=== PATIENT | male | born 1945 | race Caucasian/White ===

== ENCOUNTER 2021-07-10 06:00 | Day surgery (SDC) | payer OTHER ==
[~2021-07-10] VITALS: Ht 170.2 cm; Wt 127.0 kg
[~2021-07-10 06:00] MED LIST: ACET325 PO; ASPI325 PO; CLON.1 PO; GLIPIZIDE PO; HYDCHL25 PO; INSDET100 SQ; LEVSOD100 PO; LISHYD1012 PO; LISI10 PO; LISI5 PO; METF500 PO; METTREX2.5 PO; OSTERA TABLET1 EACH PO; Pravachol40 MG PO; REPA2 PO; SIMV20 PO; SIMV5 PO; TAMS.4ER PO; VITB100 PO
[2021-07-10] MEDS ORDERED: ATOR40TA PO (06:30)
[2021-07-10] MEDS ORDERED: ASPI81CH PO (06:30)
[2021-07-10] MEDS ORDERED: CLOPIDOGREL75 MG PO (06:31)
[2021-07-10] MEDS ORDERED: Bisoprolol Fumar5 MG PO (06:31)
[2021-07-10] MEDS ORDERED: JARDIANCE25 MG PO (06:31)
[2021-07-10] MEDS ORDERED: FAMO20 PO (06:32)
[2021-07-10] MEDS ORDERED: FOLI1 PO (06:32)
[2021-07-10] MEDS ORDERED: GABA300 PO (06:33)
[2021-07-10] MEDS ORDERED: HYDROCHLOROTH12.5 MG PO (06:33)
[2021-07-10] MEDS ORDERED: LISI20 PO (06:34)
[2021-07-10] MEDS ORDERED: INSULANI (06:34)
[2021-07-10] MEDS ORDERED: LEVSOD137 PO (06:34)
[2021-07-10] MEDS ORDERED: METFORMIN ER1000 M2 PO (06:35)
[2021-07-10] MEDS ORDERED: NITR.4SL SL (06:35)
[2021-07-10] MEDS ORDERED: STELARA90 MG/1 ML SQ (06:36)
[2021-07-10] MEDS ORDERED: TAMS.4ER PO (06:36)
[2021-07-10] MEDS ORDERED: PROB500 PO (06:36)
--- NOTE | 2021-07-10 10:09 | NUR ---
TR BAND ON RIGHT WRIST FULLY DEFLATED. REMAINS ON WITH NO AIR IN, ARM BOARD FOR SUPPORT. SITE APPEARS SOFT NON TENDER WITH NO ACTIVE BLEEDING, OOZING, OR PAIN NOTED. PT AOX4, DOES NOT REPORT ANY NEEDS AT THIS TIME. PREVIOUSLY ATE 100 % OF BREAKFAST MEAL, TOLERATES WITH NO DIFFICULTIES. HOB RAISED TO 90 DEGREES, RIGHT GROIN SITE REMAINS SOFT NON TENDER NO BLEEDING OR OOZING. DRESSING INTACT. CALL LIGHT IN REACH.
--- NOTE | 2021-07-10 11:34 | NUR ---
ECHO AT BEDSIDE
--- NOTE | 2021-07-10 11:53 | NUR ---
R GROIN AND WRIST STABLE, PT GETTING DRESSED PER SELF.
--- NOTE | 2021-07-10 12:02 | NUR ---
BOTH SITES REMAIN STABLE AFTER GETTING DRESSED. TR BAND REMOVED, AREA CLEANSED, AND CLOTH DOT PLACED. ARM BOARD REPLACED TO R FOREARM AND SLING PUT ON R ARM. SALINE LOCK REMOVED WITH CATHETER INTACT. DISCHARGE INSTRUCTIONS REVIEWED WITH PT, VERBALIZES UNDERSTANDING OF INSTRUCTIONS.
== END 2021-07-10 12:05 | disposition home or self-care (01) ==
LOC: MHTC 06:00
DX: I25.118 Atherosclerotic heart disease of native coronary artery with other forms of angina pectoris (principal); E11.9 Type 2 diabetes mellitus without complications; I10 Essential (primary) hypertension; E78.5 Hyperlipidemia, unspecified; Z87.891 Personal history of nicotine dependence; Z79.4 Long term (current) use of insulin
CPT/HCPCS: 93458; 99152; 99153; C1769; C1887; C1894; C8929; J1644; J2250; J3010; J7030; J7050; Q9957; Q9967

== ENCOUNTER 2021-10-01 15:27 | Emergency (ER) | payer OTHER ==
[~2021-10-01] VITALS: Ht 170.2 cm; Wt 117.9 kg
[~2021-10-01 15:27] MED LIST changes: +ASPI81CH PO; +ATOR40TA PO; +Bisoprolol Fumar5 MG PO; +CLOPIDOGREL75 MG PO; +FAMO20 PO; +FOLI1 PO; +GABA300 PO; +HYDROCHLOROTH12.5 MG PO; +INSULANI; +JARDIANCE25 MG PO; +LEVSOD137 PO; +LISI20 PO; +METFORMIN ER1000 M2 PO; +NITR.4SL SL; +PROB500 PO; +STELARA90 MG/1 ML SQ
[2021-10-01 16:42] LABS: BASOPHILS ABSOLUTE AUTO 0.04 K/mm3 (0.00-0.23); BASOPHILS PERCENT AUTO 1 % (0-2); EOSINOPHILS PERCENT AUTO 3 % (0-6); Hematocrit 41.9 % (37.0-53.0); IMMATURE GRAN ABSOLUTE AUTO 0.04 K/mm3 (0.00-0.10); IMMATURE GRAN PERCENT AUTO 1 % (0-1); LYMPHOCYTES ABSOLUTE AUTO 1.37 K/mm3 (0.84-5.20); LYMPHOCYTES PERCENT AUTO 19 % (21-46); MONOCYTES ABSOLUTE AUTO 0.45 K/mm3 (0.16-1.47); MONOCYTES PERCENT AUTO 6 % (4-13); Mean Corpuscular Volume 97 fL (80-100); Mean Platelet Volume 10.6 fL (9.1-12.4); NEUTROPHILS ABSOLUTE AUTO 5.04 K/mm3 (1.96-9.15); NEUTROPHILS PERCENT AUTO 71 % (41-73); Platelet Count 263 K/mm3 (150-400); RDW Standard Deviation 50.3 fL (35.1-46.3); Red Blood Cell Count 4.33 M/mm3 (4.30-5.90); White Blood Cell Count 7.14 K/mm3 (4.00-11.30)
[2021-10-01 17:02] LABS: Albumin, Blood 3.3 g/dL (3.4-5.0); Albumin/Globulin Ratio 0.7 (0.8-1.8); Bilirubin, Total 0.6 mg/dL (0.1-1.0); Bun/Creatinine Ratio 22.2 (12.0-20.0); Calcium, Blood 9.6 mg/dL (8.5-10.1); Creatinine, Blood 1.26 mg/dL (0.60-1.20); Globulin, Blood 4.6 g/dL (2.2-4.0); Potassium, Blood 4.3 mmol/L (3.5-5.5); Total Protein, Blood 7.9 g/dL (6.4-8.2)
[2021-10-01 17:05] LABS: International Normalized Ratio 1.16; Prothrombin Time Results 12.1 Sec (9.7-11.5)
== END 2021-10-01 18:05 | disposition home or self-care (01) ==
LOC: ER 15:27
PROVIDERS: Physician Assistant
DX: J90 Pleural effusion, not elsewhere classified (principal); I10 Essential (primary) hypertension; E11.9 Type 2 diabetes mellitus without complications; Z95.1 Presence of aortocoronary bypass graft
CPT/HCPCS: 80053; 85025; 85610; 85730

== ENCOUNTER 2022-08-14 16:39 | Inpatient (IN) | payer OTHER ==
[~2022-08-14] VITALS: Ht 170.2 cm; Wt 118.7 kg
--- NOTE | 2022-08-15 03:09 | NUR ---
ASSUMPTION OF CARE NOTE RECEIVED REPORT FROM YOVANI CARR RN. PT ARRIVED TO PCU2 FROM ER AROUND 2305 ON 08/14/22 WITH C-COLLAR IN PLACE. PT IS A/Ox4 AND IS COOPERATIVE WITH CARE PROVIDED BY [facility] OF STAFF. NO NEURO DEFICITS NOTED UPON ARRIVAL TO PCU. ABLE TO ANSWER QUESTIONS APPROPRIATELY WITH NO REPORTS OF DECREASE IN SENSATION OR TINGLING REPORTED. ABLE TO UPON EYES SPONTANOUSLY, REFLEXES PRESENT IN ALL EXTREM. C-COLLAR REMAINS IN PLACE PER ORDER. SEE ADMISSION ASSESSMENT FOR MORE DETAILS. NO NEW ORDERS AT THIS TIME.
[2022-08-15 04:58] LABS: Hematocrit 38.7 % (37.0-53.0); Hemoglobin 12.8 g/dL (13.5-17.5); Mean Corpuscular HGB 30.7 pg (26.0-34.0); Mean Corpuscular HGB Conc 33.1 g/dL (31.5-36.5); Mean Corpuscular Volume 93 fL (80-100); Mean Platelet Volume 11.6 fL (9.1-12.4); Platelet Count 141 K/mm3 (150-400); RDW Coefficient Variation 13.7 % (11.7-14.2); RDW Standard Deviation 46.2 fL (35.1-46.3); Red Blood Cell Count 4.17 M/mm3 (4.30-5.90); White Blood Cell Count 6.45 K/mm3 (4.00-11.30)
[2022-08-15 05:14] LABS: Creatinine, Blood 1.17 mg/dL (0.60-1.20); Potassium, Blood 4.1 mmol/L (3.5-5.5)
--- NOTE | 2022-08-15 05:58 | NUR ---
SHIFT SUMMARY A/Ox4 AND COOPERATIVE WITH CARE PROVIDED BY [facility]. ABLE TO MAKE NEEDS KNOWN WELL ANSWER QUESTIONS APPROPRIATELY. NO NEURO DEFICTS NOTED T/O THE SHIFT. NO SENSATION LOSS, NO TINGLING, PT IS VOIDING, AND HAS EQUAL STRENGTH IN ALL EXTREMITIES BILAT. C-COLLAR REMAINS SECURELY IN PLACE. MAINTAINS SPO2 >94% ON RA WITH NO SOB OR DYSPNEA NOTED AT REST. CARDIAC [place], NO REPORTS OF CP OR PRESSURE T/O THE SHIFT WITH HR RANGING IN THE 70-80'S. SBP CREPT INTO THE 160'S SBP, BUT RESPONDED WELL TO HYDRALAZINE WHICH RETURNED IT TO THE 140'S. PT ABLE TO VOID IND. WITH A URINAL. NEUROLOGY AT [facility] CONSULTED IN THE ER WHERE PT IS WAITING FOR BED TO OPEN UP. PAIN HAS BEEN MANAGED VIA EMAR. PT HAS SEVERAL WOUNDS ACROSS HIS NOSE/FOREHEAD/HAND/KNEE FROM HIS FALL AT HIS HOUSE. SEE PICS IN THE CHART. NO ACUTE EVENTS OVERNIGHT AND WILL REPORT TO DAYSHIFT RN. ALISA VANCE T/O THE SHIFT
--- NOTE | 2022-08-15 18:43 | NUR ---
END OF SHIFT NOTE PT HAS HAD A GOOD DAY DESPITE WAITING TO BE TRANSFERED FOR NEURO. VITALS STABLE, COMPLAINTS OF NECK AND HEADACHE PAIN. 6-12/02 MUCH OF THE SHIFT. PRN MEDS GIVEN REGULARLY. PT HAS MOVED AROUND THE ROOM WITH STAND BY ASSIST OF STAFF, NO NEURO DEFICETS NOTED. C COLLAR IN PLACE. MEPELIXS PLACED FOR SKIN PROTECTION. GRANDDAUGHTER VISITED THIS AFTERNOON. PT IS ABLE TO MAKE NEEDS KNOWN, CALL LIGHT WITHIN REACH.
[2022-08-16 04:35] LABS: Bun/Creatinine Ratio 16.1 (12.0-20.0); Calcium, Blood 9.1 mg/dL (8.5-10.1); Creatinine, Blood 1.24 mg/dL (0.60-1.20); Potassium, Blood 3.7 mmol/L (3.5-5.5)
--- NOTE | 2022-08-16 05:33 | NUR ---
SHIFT SUMMARY ASSUMED CARE OF PT AT 1900. PT IS A/OX4. [place]. NO ACUTE NEURO CHANGES. PT ASKED TO BE LEFT ALONE MUCH POSSIBLE DURING THE NIGHT. HEART SOUNDS REGULAR, LUNG SOUNDS CLEAR. PT SLEPT IN RECLINER ALL NIGHT. WAS INDEPENDENT TO BATHROOM.
[2022-08-16] MEDS ORDERED: OZEMPIC1 MG/0.72 SC (09:43)
--- NOTE | 2022-08-16 18:29 | NUR ---
END OF SHIFT NOTE. PT HAS HAD A GOOD DAY, CONTINUES TO WAIT FOR BED AT [facility]. NEURO STATUS REMAINS WNL. C COLLAR IN PLACE, SEEMS TO BE POOR FIT. MAY NEED A DIFFERNT FITTING COLLAR WHEN ABLE. ABRASIONS HEALING WELL. ONE TIME ORDER FOR PTS HOME SUB Q DIABETIC MED. PT IS ABLE TO MAKE NEEDS KNOWN. CALL LIGHT IS WITHIN REACH.
[2022-08-17 04:51] LABS: Bun/Creatinine Ratio 18.7 (12.0-20.0); Calcium, Blood 9.2 mg/dL (8.5-10.1); Creatinine, Blood 1.39 mg/dL (0.60-1.20); Potassium, Blood 4.1 mmol/L (3.5-5.5)
--- NOTE | 2022-08-17 05:36 | NUR ---
SHIFT SUMMARY ASSUMED CARE OF PT AT 1900. PT IS A/OX4. HEART SOUNDS REGULAR. LUNG SOUNDS CLEAR. PT REPORTS NO NEW CHANGES. PT ASKED WHERE HE WAS IN LINE TO GET TRASFERED. CHRISTINE CALLED AND REPORTED PT WAS 6TH IN LINE AND WOULD CALL IN AM FOR UPDATE. PT HAD HEADACHE T/O NIGHT, MEDICATED PER EMAR.
--- NOTE | 2022-08-17 18:35 | NUR ---
END OF SHIFT PT A&O X4. C-COLLAR IN PLACE. PT MEDICATED FOR HEADACHE W/ PRN PAIN MEDICATION PER EMAR X1 THIS SHIFT W/ IMPROVEMENT. VSS. SPO2 > 92% ON RA. MONITOR SHOWING NSR. PT CONTINUES TO WAIT FOR TRANSFER TO ANOTHER HOSPITAL FOR CARE.
--- NOTE | 2022-08-17 22:22 | NUR ---
TRANSFER PT TRANSFER FROM PCU. ARRIVED IN NO DISTRESS, A/OX4 AND INDEPENDENT IN ROOM. SETTLED AND GIVEN CALL LIGHT.
--- NOTE | 2022-08-18 04:14 | NUR ---
VSS. PT SLEPT WELL T/O THE NIGHT. MEDICATED FOR HEADACHE PAIN WIHT PRN'S. FENT USED FOR BREAKTHROUGH PAIN ONCE. PT REMAINED INDEP T/O THE NIGHT. AMBULATING INDEP AND VOIDING W/O DIFFICULTY. TOLLERATING PO INTAKE W/O N/V. PT REMAINS W/O CHANGES IN SENSATION, VISION, OR COGNITIION. NO ACUTE EVENTS NOTED. AWAITING COBRA TRANSFER TO NEUROSURGERY. THE PATIENT IS CURRENTLY RESTING IN RECLINER, IN NO DISTRESS, CALL LIGHT IN REACH
--- NOTE | 2022-08-18 15:00 | NUR ---
CALL TO CHRISTINE THIS RN CALLED RN JANNY AT [facility] TRANSFER ADMIT CENTER TO CONFIRM PATIENT ON THE WAITLIST. RN JANNY CONFIRMED AND UPDATED THAT STILL NO BEDS ARE AVAILABLE.
--- NOTE | 2022-08-18 17:01 | NUR ---
SHIFT SUMMARY NO ACUTE CHANGES THIS SHIFT. C-COLALR REMAINS IN PLACE, MEPILEX PADDING UDNER ALL POINTS OF SKIN CONTACT FOR PATIENT COMFORT AND TO PROTECT SKIN. PAIN MANAGED WELL PER EMAR. PATIENT INDEPENDENT IN ROOM & HALLWAYS, UP TO CHAIR T/O SHIFT. EATING, DRINKING, & VOIDING WELL. STILL NO BEDS AVAILABLE AT [facility], DR CINTRON MADE CLEAR DURING CONVERSATION WITH THIS RN THAT PATIENT WAS TO STAY INPATIENT UNTIL ABLE TO TRANSFER TO FACILITY WITH NEUROSURGERY FOR CONSULT. PATIENT CALLS APPROPRIATELY, IN REACH. WILL REPORT TO ONCOMING RN AT 1900.
--- NOTE | 2022-08-19 04:00 | NUR ---
SHIFT SUMMARY AOX4. VSS. REPORTS MILD 1/10 PAIN IN NECK, DENIES NEED FOR MEDS. AT HS PT ASKED FOR C-COLLAR REMOVAL TO "CLEAN UNDERNEATH" DISCUSSED c HOSPITALIST [place] & HE ORDERED FOR C-COLLAR NOT TO BE REMOVED, EDUCATED PT ON IMPORTANCE OF LEAVING IN PLACE. PT IN c TRANSFER IN RM, STEADY GAIT. DENIES DIZZINESS OR MENA. CALL LIGHT IN REACH, WILL MONITOR.
[2022-08-19] MEDS ORDERED: OXAYDO5 M1 PO (15:34)
--- NOTE | 2022-08-19 17:31 | NUR ---
DISCHARGE SUMMARY PATIENT ALERT AND ORIENTED AND INDEPENDENT IN ROOM. TOLERATING ADA DIET AND LIQUIDS. ACHS CHEM BGS WNL, NO INSULIN COVERAGE NEEDED. VOIDING WELL. NECK C COLLAR, PATIENT REPORTS MILD PAIN TO NECK AND BACK AND BUTTOCKS, MEDICATED PER EMAR. NEUROLOGICALLY INTACT. [place] NEUROSURGEON SPOKE WITH DR CINTRON AND C1 FRACTURE IS NOT TYPICALLY OPERABLE AND TRANSFER IS NOT NEEDED. DISCHARGE ORDERS WERE PLACED AND CARE MANAGEMENT IS FOLLOWING UP TO GET A NEUROSURGEON APPT WITHIN 1 WEEK. IV DC'D WNL. DISCHARGE EDUCATION GIVEN ON NECESSITY OF KEEPING C COLLAR IN PLACE, PAIN MEDICATION, AND FOLLOW UP WITH NEUROSURGERY. PATIENT LEFT UNIT AT 1515 VIA WHEELCHAIR WITH [facility]ILY [facility] FOR HOME.
== END 2022-08-19 17:23 | disposition home or self-care (01) | DRG 552 ==
LOC: ER 16:39 → PCU 16:40 → ER 22:58 → PCU 23:17 → SURS 08-17 20:54
PROVIDERS: Student in an Organized Health Care Education/Training Program; ADMIT Internal Medicine
DX: S12.091A Other nondisplaced fracture of first cervical vertebra, initial encounter for closed fracture (principal); I25.10 Atherosclerotic heart disease of native coronary artery without angina pectoris; E11.9 Type 2 diabetes mellitus without complications; I10 Essential (primary) hypertension; E03.9 Hypothyroidism, unspecified; M10.9 Gout, unspecified; L40.9 Psoriasis, unspecified; N40.0 Benign prostatic hyperplasia without lower urinary tract symptoms; W22.8XXA Striking against or struck by other objects, initial encounter; Z96.653 Presence of artificial knee joint, bilateral; Z98.890 Other specified postprocedural states; Z79.899 Other long term (current) drug therapy; Z95.1 Presence of aortocoronary bypass graft; Z23 Encounter for immunization; Z79.82 Long term (current) use of aspirin; Z79.02 Long term (current) use of antithrombotics/antiplatelets; Z79.4 Long term (current) use of insulin; Z79.84 Long term (current) use of oral hypoglycemic drugs
CPT/HCPCS: 36415; 72125; 80048; 82947; 85027; 90686; 93005; 93010; 96374; 99285-25; A9270; J0360; J1650; J3010